=== PATIENT | female | born 1945 | race Two or more races ===

== ENCOUNTER 2019-03-26 10:00 | Inpatient (IN) | payer MEDICARE ==
[~2019-03-26] VITALS: Ht 162.6 cm; Wt 72.1 kg
[2019-03-26] MEDS ORDERED: ACETAMINOPHEN 325 MG TABLET PO PRN (11:30)
[2019-03-26] MEDS ORDERED: BLOOD SUGAR DIAGNOSTIC 1 EACH STRIP IN ONE (11:30)
[2019-03-26] MEDS ORDERED: MAG HYDROX/AL HYDROX/SIMETH 30 ML UDC PO PRN (11:30)
[2019-03-26] MEDS ORDERED: MAGNESIUM HYDROXIDE 30 ML UDC PO PRN (11:30)
[2019-03-26] MEDS ORDERED: TEMAZEPAM 7.5 MG CAPSULE PO PRN (11:30)
[2019-03-26] MEDS ORDERED: LORAZEPAM 0.5 MG TABLET PO PRN (11:30)
[2019-03-26] MEDS ORDERED: HYDR25TA4 PO (12:24)
[2019-03-26] MEDS ORDERED: POTA20TA83 PO (12:24)
[2019-03-26] MEDS ORDERED: LISI40TA4 PO (12:24)
[2019-03-26] MEDS ORDERED: ATOR10TA PO (12:24)
[2019-03-26] MEDS ORDERED: CARV25TA2 PO (12:24)
[2019-03-26] MEDS ORDERED: FLUO20CA40 PO (12:24)
[2019-03-26] MEDS ORDERED: LATA2.5D7 OP (12:27)
[2019-03-26] MEDS ORDERED: DOXA4TAB19 PO (12:27)
[2019-03-26 14:37] VITALS: BP 108/56
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
[2019-03-26 16:00] VITALS: BP 105/58
[2019-03-26] MEDS: ATORVASTATIN 10 MG TABLET PO SCH ×2 (16:43→21:34)
[2019-03-26] MEDS: LISINOPRIL (20MG) 20 MG TABLET PO SCH (16:43)
[2019-03-26] MEDS: BENZTROPINE MESYLATE (1 MG) 1 MG TABLET PO SCH (19:00)
[2019-03-26] MEDS: HALOPERIDOL 5 MG TABLET PO SCH (19:00)
[2019-03-26] MEDS: CARVEDILOL 12.5 MG TABLET PO SCH (21:00)
[2019-03-26 21:09] VITALS: BP 113/51
[2019-03-26] MEDS: LATANOPROST EYE DROP 0.005% 2.5 ML BOTTLE OP SCH (21:35)
--- NOTE | 2019-03-27 06:42 | NUR ---
pt refused blood draw for routine labs. explained benefits. pt still refused.
[2019-03-27] MEDS: HALOPERIDOL 5 MG TABLET PO SCH ×2 (07:00→19:00)
[2019-03-27] MEDS: BENZTROPINE MESYLATE (1 MG) 1 MG TABLET PO SCH ×2 (07:00→19:45)
[2019-03-27 08:00] VITALS: BP 124/70
[2019-03-27] MEDS: HYDROCHLOROTHIAZIDE 25 MG TABLET PO SCH (09:00)
[2019-03-27] MEDS: POTASSIUM CHLORIDE 20 MEQ TAB.PRT.SR PO SCH (09:23)
[2019-03-27] MEDS: DOXAZOSIN MESYLATE (4 MG) 4 MG TABLET PO SCH (09:23)
[2019-03-27] MEDS: CARVEDILOL 12.5 MG TABLET PO SCH ×2 (09:24→21:06)
[2019-03-27] MEDS: LISINOPRIL (20MG) 20 MG TABLET PO SCH (09:25)
--- NOTE | 2019-03-27 15:14 | NUR ---
APS Contact: SW called aps worker Felicita ([phone]) and left a voicemail stating that the SW would like to discuss the pts treatment.
--- NOTE | 2019-03-27 15:14 | NUR ---
County Contact: Norman ([phone]) from [facility] called the SW and stated that he would like to be informed of the pts discharge plan and stated that they can set up aftercare if necessary.
--- NOTE | 2019-03-27 15:16 | NUR ---
Initial Discharge Plan: Pt is currently homeless and has been refusing placement. SW will work with the pt and the MD regarding appropriate discharge planning. SW will form a safe and proper discharge.
[2019-03-27 15:20] LABS: ALBUMIN 3.1 g/dL (3.4-5.0); BILIRUBIN,TOTAL 0.3 mg/dL (0.2-1.0); CALCIUM, SERUM 8.5 mg/dL (8.5-10.1); CREATININE 0.6 mg/dL (0.6-1.3); POTASSIUM 3.9 mmol/L (3.5-5.1); TOTAL PROTEIN, SERUM 6.2 g/dL (6.4-8.2)
[2019-03-27 16:00] VITALS: BP 125/68
[2019-03-27 17:30] LABS: CHOLESTEROL 126 mg/dL (<200); HDL CHOLESTEROL 42 mg/dL (40-60); LDL 65 mg/dL (0-99); TRIGLYCERIDES 158 mg/dL (30-150)
--- NOTE | 2019-03-27 19:47 | NUR ---
GPS/HEALTHCARE BUSINESS ANALYST NOTES: PT. REFUSED HS HALDOL 5MG PO ORDERED. OFFERED 3X. EXPLAINED RISK AND BENEFITS. PT. STILL REFUSED.
[2019-03-27 20:58] VITALS: BP 148/85
[2019-03-27] MEDS: LATANOPROST EYE DROP 0.005% 2.5 ML BOTTLE OP SCH (21:06)
[2019-03-27] MEDS: ATORVASTATIN 10 MG TABLET PO SCH (21:06)
[2019-03-28] MEDS: HALOPERIDOL 5 MG TABLET PO SCH ×2 (07:00→18:08)
[2019-03-28] MEDS: BENZTROPINE MESYLATE (1 MG) 1 MG TABLET PO SCH ×2 (07:25→18:08)
[2019-03-28 08:00] VITALS: BP 141/68
[2019-03-28] MEDS: POTASSIUM CHLORIDE 20 MEQ TAB.PRT.SR PO SCH (08:14)
[2019-03-28] MEDS: LISINOPRIL (20MG) 20 MG TABLET PO SCH (08:14)
[2019-03-28] MEDS: DOXAZOSIN MESYLATE (4 MG) 4 MG TABLET PO SCH (08:14)
[2019-03-28] MEDS: HYDROCHLOROTHIAZIDE 25 MG TABLET PO SCH (08:15)
[2019-03-28] MEDS: CARVEDILOL 12.5 MG TABLET PO SCH ×2 (08:15→21:00)
[2019-03-28 16:00] VITALS: BP 128/69
--- NOTE | 2019-03-28 19:14 | NUR ---
GPS/RN NOTE: A/O X3, COMFORTABLE, RESTING QUIETLY, NO APPARENT DISTRESS NOTED. CALM, ISOLATIVE. FALL RISK PRECAUTION MAINTAINED. CONTINUE TO MONITOR FOR SAFETY AND BEHAVIOR.
[2019-03-28 20:31] VITALS: BP 116/61
--- NOTE | 2019-03-28 21:14 | NUR ---
GPS/RN NOTE: REFUSED HER COREG 12.5 MG TAB PO DUE 2100 TONIGHT, BP 116/61, PULSE 72.
[2019-03-28] MEDS: LATANOPROST EYE DROP 0.005% 2.5 ML BOTTLE OP SCH (21:16)
[2019-03-28] MEDS: ATORVASTATIN 10 MG TABLET PO SCH (21:16)
[2019-03-29] MEDS: BENZTROPINE MESYLATE (1 MG) 1 MG TABLET PO SCH ×2 (06:55→19:00)
[2019-03-29] MEDS: HALOPERIDOL 5 MG TABLET PO SCH ×2 (06:55→19:00)
--- NOTE | 2019-03-29 07:30 | NUR ---
OPENING PT RESTING COMFORTABLY IN BED A/O X3, COMFORTABLE, RESTING QUIETLY, NO APPARENT DISTRESS NOTED. CALM, ISOLATIVE. FALL RISK PRECAUTION MAINTAINED. CONTINUE TO MONITOR FOR SAFETY AND BEHAVIOR.
[2019-03-29 08:00] VITALS: BP 136/73
[2019-03-29] MEDS: HYDROCHLOROTHIAZIDE 25 MG TABLET PO SCH (09:23)
[2019-03-29] MEDS: DOXAZOSIN MESYLATE (4 MG) 4 MG TABLET PO SCH (09:23)
[2019-03-29] MEDS: POTASSIUM CHLORIDE 20 MEQ TAB.PRT.SR PO SCH (09:24)
[2019-03-29] MEDS: LISINOPRIL (20MG) 20 MG TABLET PO SCH (09:24)
[2019-03-29] MEDS: CARVEDILOL 12.5 MG TABLET PO SCH ×2 (09:25→21:40)
--- NOTE | 2019-03-29 14:34 | NUR ---
SISTER CALL TODAY SPOKE ABOUT PT NIECE CALL, MISA ROBIN, TELEPHONE NUMBER:
[2019-03-29 16:00] VITALS: BP 130/61
--- NOTE | 2019-03-29 17:52 | NUR ---
CLOSING PT COOPERATIVE ALL SHIFT KEEP SAFE ALL MEDICATIONS GIVEN WILL GIVE REPORT TO PM SHIFT RN FOR CONTINUITY OF CARE
--- NOTE | 2019-03-29 19:11 | NUR ---
GPS/RN NOTE: REFUSED COGENTIN 1 MG DUE FOR 1900 TONIGHT.
--- NOTE | 2019-03-29 19:13 | NUR ---
GPS/RN NOTE: REFUSED TO TAKE HALDOL 5 MG TAB DUE FOR 1900 TONIGHT.
--- NOTE | 2019-03-29 20:10 | NUR ---
GPS/RN NOTE: QUIET, LYING IN BED ON HER LEFT SIDE, SHOWS NO S/S OF ANY DISTRESS. A/O X3, AMBULATORY/INDEPENDENT WITH ROUTINE ADL'S. A/O X3, NON-COMPLIANT WITH HER COGENTIN, REFUSED 1900 DOSE TONIGHT. WILL CONTINUE TO MONITOR.
[2019-03-29 20:13] VITALS: BP 117/65
[2019-03-29] MEDS: ATORVASTATIN 10 MG TABLET PO SCH (21:40)
[2019-03-29] MEDS: LATANOPROST EYE DROP 0.005% 2.5 ML BOTTLE OP SCH (21:44)
--- NOTE | 2019-03-29 21:45 | NUR ---
GPS/RN NOTE: REFUSED HER XALATAN OPTHALMIC SOLUTION, SHE STATED, " IT IRRITATES MY EYES."
[2019-03-30] MEDS: HALOPERIDOL 5 MG TABLET PO SCH ×2 (06:22→19:00)
[2019-03-30] MEDS: BENZTROPINE MESYLATE (1 MG) 1 MG TABLET PO SCH ×2 (06:23→19:00)
--- NOTE | 2019-03-30 06:23 | NUR ---
GPS/RN NOTE: COGENTIN NOT GIVEN 0700 DOSE TODAY PER MD'S ORDER. PATIENT REFUSED HALDOL AT THIS TIME. MD'S ORDER IS, IF PATIENT IS NOT TAKING HALDOL, COGENTIN MUST BE HELD. NO COGENTIN WAS GIVEN.
--- NOTE | 2019-03-30 06:59 | NUR ---
GPS/RN END OF SHIFT NOTE: SLEPT FOR 8 HOURS LAST NIGHT. NO APPARENT DISTRESS NOTED. REFUSED HALDOL LAST NIGHT, COGENTIN NOT ADMINISTERED PER DOCTOR'S ORDER,DUE TO HER REFUSAL OF HALDOL, DR. SMALL AWARE. WILL CONTINUE TO MONITOR.
[2019-03-30 08:00] VITALS: BP 127/63
[2019-03-30] MEDS: LISINOPRIL (20MG) 20 MG TABLET PO SCH (08:52)
[2019-03-30] MEDS: POTASSIUM CHLORIDE 20 MEQ TAB.PRT.SR PO SCH (08:52)
[2019-03-30] MEDS: HYDROCHLOROTHIAZIDE 25 MG TABLET PO SCH (08:52)
[2019-03-30] MEDS: DOXAZOSIN MESYLATE (4 MG) 4 MG TABLET PO SCH (08:53)
[2019-03-30] MEDS: CARVEDILOL 12.5 MG TABLET PO SCH ×2 (08:54→21:30)
[2019-03-30 16:00] VITALS: BP 112/59
--- NOTE | 2019-03-30 19:05 | NUR ---
gps/rn pt refused paul and genevieve po scheduled for 190
[2019-03-30 20:23] VITALS: BP 124/71
[2019-03-30] MEDS: ATORVASTATIN 10 MG TABLET PO SCH (21:29)
[2019-03-30] MEDS: LATANOPROST EYE DROP 0.005% 2.5 ML BOTTLE OP SCH (21:32)
[2019-03-31] MEDS: BENZTROPINE MESYLATE (1 MG) 1 MG TABLET PO SCH ×2 (07:35→19:35)
[2019-03-31] MEDS: HALOPERIDOL 5 MG TABLET PO SCH ×2 (07:35→19:35)
--- NOTE | 2019-03-31 07:41 | NUR ---
RN NOTES: PT. TOOK MEDS FOR 0700 AM , HALODOL 5 MG , COGENTIN 1 MG, ENDORSE TO CHARGE NURSE, WILL CONTINUITY WITH CARE
[2019-03-31 08:00] VITALS: BP 124/69
[2019-03-31] MEDS: POTASSIUM CHLORIDE 20 MEQ TAB.PRT.SR PO SCH (09:41)
[2019-03-31] MEDS: CARVEDILOL 12.5 MG TABLET PO SCH ×2 (09:41→21:19)
[2019-03-31] MEDS: HYDROCHLOROTHIAZIDE 25 MG TABLET PO SCH (09:42)
[2019-03-31] MEDS: LISINOPRIL (20MG) 20 MG TABLET PO SCH (09:42)
[2019-03-31] MEDS: DOXAZOSIN MESYLATE (4 MG) 4 MG TABLET PO SCH (09:42)
[2019-03-31 16:00] VITALS: BP 101/60
[2019-03-31 20:08] VITALS: BP 108/65
[2019-03-31 20:09] VITALS: BP 112/61
[2019-03-31] MEDS: ATORVASTATIN 10 MG TABLET PO SCH (21:20)
[2019-03-31] MEDS: LATANOPROST EYE DROP 0.005% 2.5 ML BOTTLE OP SCH (21:20)
[2019-04-01] MEDS: BENZTROPINE MESYLATE (1 MG) 1 MG TABLET PO SCH ×2 (07:02→18:43)
[2019-04-01] MEDS: HALOPERIDOL 5 MG TABLET PO SCH ×2 (07:02→18:43)
[2019-04-01 08:00] VITALS: BP 138/78
[2019-04-01] MEDS: HYDROCHLOROTHIAZIDE 25 MG TABLET PO SCH (08:52)
[2019-04-01] MEDS: POTASSIUM CHLORIDE 20 MEQ TAB.PRT.SR PO SCH (08:53)
[2019-04-01] MEDS: DOXAZOSIN MESYLATE (4 MG) 4 MG TABLET PO SCH (08:53)
[2019-04-01] MEDS: CARVEDILOL 12.5 MG TABLET PO SCH ×2 (08:53→21:06)
[2019-04-01] MEDS: LISINOPRIL (20MG) 20 MG TABLET PO SCH (08:53)
--- NOTE | 2019-04-01 11:37 | NUR ---
APS Contact: SW called aps worker Felicita ([phone]) as she had left a voicemail for the SW over the weekend and the SW left a voicemail stating that she would like to discuss the pts treatment.
--- NOTE | 2019-04-01 11:55 | NUR ---
Family Contact: SW called the pts sister, Temi ([phone]), and left a message on her voicemail stating that the SW would like to discuss the pts discharge plan.
--- NOTE | 2019-04-01 12:07 | NUR ---
Family Contact: GEOVANY called the pts Isamar strauss ([phone]), and informed her that the plan is to discharge the pt to a nursing facility in [place] because Adult Protective Services would like to consider conserving the pt but she would have to be in that [facility].
--- NOTE | 2019-04-01 15:20 | NUR ---
GROUP NOTE: SW assessed pts ability to participate in group therapy nn this present day discussing "discharge planning." Pt refused yelling, "if you cant help me leave today then get out of my room I don't need to talk to you." SW attempted to engage pt in conversation but pt has lacks insight and has has impaired judgement.
[2019-04-01 16:00] VITALS: BP 114/67
[2019-04-01 20:27] VITALS: BP 120/66
[2019-04-01 20:38] VITALS: BP 101/62
[2019-04-01] MEDS: LATANOPROST EYE DROP 0.005% 2.5 ML BOTTLE OP SCH (21:04)
[2019-04-01] MEDS: ATORVASTATIN 10 MG TABLET PO SCH (21:06)
[2019-04-02 08:00] VITALS: BP 140/71
[2019-04-02] MEDS: BENZTROPINE MESYLATE (1 MG) 1 MG TABLET PO SCH ×3 (08:44→16:40)
[2019-04-02] MEDS: HALOPERIDOL 5 MG TABLET PO SCH ×3 (08:44→16:40)
[2019-04-02] MEDS: DOXAZOSIN MESYLATE (4 MG) 4 MG TABLET PO SCH (08:46)
[2019-04-02] MEDS: HYDROCHLOROTHIAZIDE 25 MG TABLET PO SCH (08:47)
[2019-04-02] MEDS: CARVEDILOL 12.5 MG TABLET PO SCH ×2 (08:47→21:31)
[2019-04-02] MEDS: LISINOPRIL (20MG) 20 MG TABLET PO SCH (08:47)
[2019-04-02] MEDS: POTASSIUM CHLORIDE 20 MEQ TAB.PRT.SR PO SCH (08:47)
--- NOTE | 2019-04-02 09:02 | NUR ---
APS Contact: GEOVANY called APS worker Felicita ([phone]), and informed her that she received her voicemail and that she will be calling the pts niece that she stated would be involved in the treatment planning.
--- NOTE | 2019-04-02 10:06 | NUR ---
Family Contact: SW contacted the pts niece, Dominga ([phone]), and left a voicemail stating that the SW would like to discuss the pts treatment plan.
--- NOTE | 2019-04-02 10:08 | NUR ---
PC Hearing Notification: GEOVANY called the pts Isamar strauss ([phone]), and informed her that the pt will be having a Probable Cause hearing today and that she may call back with any questions.
--- NOTE | 2019-04-02 13:02 | NUR ---
GPS/RN NOTES MEDICATION COGENTIN AND HALDOL WAS NOT GIVEN AT NOON DUE TO PATIENT REFUSING. EXPLAINED RISK AND BENEFITS X3. STILL REFUSED X3. PATIENT CONTINUES TO REMAIN IN STABLE. WILL CONTINUE TO MONITOR CLOSELY.
--- NOTE | 2019-04-02 14:30 | NUR ---
GPS/RN NOTES RECEIVED A PHONE CALL FROM DR. SMALL AND REPORTED THAT PATIENT TOOK HER MORNING MEDS BUT NOT HER NOON MEDICATION. PATIENT CONTINUES TO REMAIN IN STABLE CONDITION. WILL CONTINUE TO MONITOR CLOSELY.
--- NOTE | 2019-04-02 14:35 | NUR ---
Family Contact: Pts carlos a, Dominga ([phone]) called the SW and stated that she wanted the pt to be transferred to a hospital in the [facility] so that the pt can become LPS conserved. SW stated that she would attempt to transfer and informed her that as a backup the pt may be [facility].
--- NOTE | 2019-04-02 15:39 | NUR ---
SNF Referral: GEOVANY faxed a referral to [facility] (with attention to Sally) to the fax number: [phone].
--- NOTE | 2019-04-02 15:53 | NUR ---
Family Contact: GEOVANY contacted the pts niece, Dominga ([phone]), and the pts niece expressed her concern with the pt being at a skilled nrusing facility where the potential Riese will not apply and the pt can refuse her medications. She stated that the pt needs to be conserved and therefore the best option would be to transfer the pt to [facility] as was suggested by APS GEOVANY Mims. GEOVANY stated that she will discuss this plan with her patrol supervisor the following day and then provide her with a call back.
[2019-04-02 16:00] VITALS: BP 118/61
--- NOTE | 2019-04-02 16:11 | NUR ---
Group Note: SW encouraged pt to attend group therapy on 04/02/19 at 12pm discussing discharge planning. Pt is inappropriate for group therapy at this time and refused to participate. Pt has not been taking her medications and has been verbally aggressive on the unit with the pts and the staff members. Pt screamed at the SW that she "does not have a problem and I demand that you let me go back home now!" GEOVANY informed the pt that she will return to the [facility] but it may be in a SNF and the pt stated that she will refuse to go because she would "rather be on the streets."
--- NOTE | 2019-04-02 18:22 | NUR ---
GPS/RN CLOSING NOTES PATIENT CONTINUES TO REMAIN IN STABLE CONDITION THROUGHOUT THE SHIFT. PROVIDED COMFORT AND SAFETY AT ALL TIMES. PATIENT CONTINUES TO REFUSED MEDICATION AT THIS TIME. DR. SMALL WAS AWARE. WITH NO SUICIDAL IDEATION AT THIS TIME. ALL NEEDS ANTICIPATED. CALL LIGHT WITHIN REACHED. BED LOCKED AND IN LOWEST POSITION. WILL CONTINUE TO MONITOR CLOSELY. ENDORSED TO PM NURSE FOR YAMILETH.
[2019-04-02 19:55] VITALS: BP 111/61
[2019-04-02] MEDS: ATORVASTATIN 10 MG TABLET PO SCH (21:30)
[2019-04-02] MEDS: LATANOPROST EYE DROP 0.005% 2.5 ML BOTTLE OP SCH (21:31)
[2019-04-03 08:00] VITALS: BP 121/68
[2019-04-03 08:18] LABS: BASOPHILS % (AUTO) 0.5 % (0.0-2.0); EOSINOPHILS % (AUTO) 1.6 % (0.0-6.0); HEMATOCRIT 36 % (33-45); HEMOGLOBIN 12.1 g/dL (11.5-14.8); LYMPHOCYTES # (AUTO) 1.4 /CMM (0.8-4.8); LYMPHOCYTES % (AUTO) 26.3 % (20.0-44.0); MEAN CORPUSCULAR HGB CONC 34 g/dl (31.0-36.0); MEAN CORPUSCULAR VOLUME 92 fL (82-100); MONOCYTES # (AUTO) 0.5 /CMM (0.1-1.30); MONOCYTES % (AUTO) 9.2 % (2.0-12.0); NEUTROPHILS # (AUTO) 3.2 /CMM (1.8-8.9); NEUTROPHILS % (AUTO) 62.4 % (43.0-81.0); PLATELET COUNT (AUTO) 222 /CMM (150-450); RED BLOOD CELL COUNT(AUTO) 3.92 MIL/uL (4.0-5.2); WHITE BLOOD COUNT (AUTO) 5.2 K/uL (4.3-11.0)
[2019-04-03] MEDS: DOXAZOSIN MESYLATE (4 MG) 4 MG TABLET PO SCH (08:26)
[2019-04-03] MEDS: POTASSIUM CHLORIDE 20 MEQ TAB.PRT.SR PO SCH (08:26)
[2019-04-03] MEDS: HALOPERIDOL 5 MG TABLET PO SCH ×4 (08:26→16:59)
[2019-04-03] MEDS: HYDROCHLOROTHIAZIDE 25 MG TABLET PO SCH (08:26)
[2019-04-03] MEDS: BENZTROPINE MESYLATE (1 MG) 1 MG TABLET PO SCH ×4 (08:27→16:58)
[2019-04-03] MEDS: CARVEDILOL 12.5 MG TABLET PO SCH ×2 (08:27→21:00)
[2019-04-03] MEDS: LISINOPRIL (20MG) 20 MG TABLET PO SCH (08:28)
[2019-04-03 08:39] LABS: CALCIUM, SERUM 8.7 mg/dL (8.5-10.1); CREATININE 0.6 mg/dL (0.6-1.3); PHOSPHORUS 3.8 mg/dL (2.5-4.9); POTASSIUM 4.2 mmol/L (3.5-5.1)
--- NOTE | 2019-04-03 09:56 | NUR ---
Coordination of Care: GEOVANY called [facility] ([phone]) and spoke to Ghada in the intake department who stated that their age range falls between 18-64 years for their patients and this pt is 73 which is outside of their accepted range. GEOVANY stated that she will try [facility]. Addendum: 04/05/19 at 0949 by HIEU ARMENTA [facility]
--- NOTE | 2019-04-03 10:06 | NUR ---
Coordination of Care: SW called [facility] ([phone]) and spoke to Teetee who stated that there is no female bed available at this time but asked the SW to fax records to: [phone]. GEOVANY stated that she will do so and then will follow up.
--- NOTE | 2019-04-03 10:21 | NUR ---
Coordination of Care: GEOVANY faxed records to [facility] with attention to Teetee to the fax number: [phone].
[2019-04-03] MEDS ORDERED: BENZTROPINE MESYLATE (2MG/2ML) 2 MG/2 ML AMPUL IM PRN (15:30)
[2019-04-03] MEDS ORDERED: HALOPERIDOL DECANOATE IM 100 MG/ML AMPUL IM ONE (15:30)
--- NOTE | 2019-04-03 15:30 | NUR ---
GROUP NOTE: SW assessed pts ability to participate in group therapy nn this present day discussing "reality testing." Pt refused and stated that she does not have to participate in anything as she has already filed for a WRIT HEARING and is waiting for it to be scheduled so she can leave.
[2019-04-03 16:00] VITALS: BP 120/64
[2019-04-03] MEDS: HALOPERIDOL LACTATE INJ 5 MG/ML VIAL IM SCH (17:00)
--- NOTE | 2019-04-03 17:47 | NUR ---
RN NOTE- PT RIESE HEARING TODAY. PT TOOK PO HALDOL AND COGENTIN. IM HALDOL AND COGENTIN NOT INDICATED AT THIS TIME.
[2019-04-03 20:15] VITALS: BP 109/60
[2019-04-03] MEDS: LATANOPROST EYE DROP 0.005% 2.5 ML BOTTLE OP SCH (21:22)
[2019-04-03] MEDS: ATORVASTATIN 10 MG TABLET PO SCH (21:22)
[2019-04-04 08:00] VITALS: BP 116/66
[2019-04-04] MEDS: FLUOXETINE HCL 20 MG CAPSULE PO SCH (08:40)
[2019-04-04] MEDS: HALOPERIDOL 5 MG TABLET PO SCH ×3 (08:40→18:05)
[2019-04-04] MEDS: DOXAZOSIN MESYLATE (4 MG) 4 MG TABLET PO SCH (08:40)
[2019-04-04] MEDS: BENZTROPINE MESYLATE (1 MG) 1 MG TABLET PO SCH ×3 (08:40→18:05)
[2019-04-04] MEDS: POTASSIUM CHLORIDE 20 MEQ TAB.PRT.SR PO SCH (08:40)
[2019-04-04] MEDS: HYDROCHLOROTHIAZIDE 25 MG TABLET PO SCH (08:41)
[2019-04-04] MEDS: CARVEDILOL 12.5 MG TABLET PO SCH ×2 (08:41→21:06)
[2019-04-04] MEDS: LISINOPRIL (20MG) 20 MG TABLET PO SCH (08:42)
[2019-04-04] MEDS: HALOPERIDOL LACTATE INJ 5 MG/ML VIAL IM SCH ×3 (09:00→17:00)
--- NOTE | 2019-04-04 09:33 | NUR ---
APS Contact: APS worker Felicita ([phone]) called the SW and she was informed that the SW had attempted to transfer the pt to [facility] but was unsuccessful. SW stated that the pt is being considered admission to [facility] and that the pt is being discharged the following day. APS SW stated that she would speak to the family regarding the next steps of action.
--- NOTE | 2019-04-04 09:39 | NUR ---
Family Contact: SW contacted the pts niece, Dominga ([phone]), and left a voicemail stating that the SW would like to discuss the case with her.
--- NOTE | 2019-04-04 09:42 | NUR ---
GPS/RN pt took all am meds
--- NOTE | 2019-04-04 10:17 | NUR ---
DR. SMALL MADE AWARE THAT THE SCHEDULE FOR THE WRIT OF LAINE [facility]PUS TOMORROW (04/05/2019) AT 8;30 AM.
--- NOTE | 2019-04-04 10:39 | NUR ---
SNF Contact: GEOVANY faxed updated notes to [facility] (with attention to Sally) to the fax number: [phone].
--- NOTE | 2019-04-04 11:45 | NUR ---
[facility] Contact: Norman ([phone]) from [facility] called the SW and the SW informed him that the pt is being discharged tomorrow but [facility] is still not confirmed and the SW tried the other two [facility] hospitals in that area. He suggested that the SW try the [facility] ([phone]) program. SW stated that she would provide an update by the end of the day.
--- NOTE | 2019-04-04 11:51 | NUR ---
BREAD ROOM HAND Contact: GEOVANY called the [facility] ([phone]) program and spoke to Jody who stated that there is a waitlist currently and stated that the SW can still fax a referral to: [phone].
--- NOTE | 2019-04-04 11:56 | NUR ---
PUBLICIST Referral: GEOVANY faxed a referral to the [facility] ([phone]) to the fax number: [phone].
--- NOTE | 2019-04-04 11:57 | NUR ---
[facility] Contact: Fanny ([phone]) assisting Harrison Sunday called the SW and stated that she wanted information regarding his discharge and if the pt will have everything that he needs. She stated that he has 45 hours Supportive Living Services a month but stated that he would require more. She requested that the SW follow up with her at the time of discharge with the home health information and the caregiving information. Addendum: 04/04/19 at 1203 by HIEU ARMENTA Baby Nurse Harrison Brand [phone]
--- NOTE | 2019-04-04 13:29 | NUR ---
SNF Contact: Sally ([phone]) from [facility] contacted the SW and stated that the pt will be accepted to their facility.
[2019-04-04] MEDS ORDERED: HALOPERIDOL DECANOATE IM 100 MG/ML AMPUL IM ONE (15:00)
--- NOTE | 2019-04-04 15:22 | NUR ---
Family Contact: Pts niece, Dominga ([phone]), called the SW back and the SW informed her that the pt is going to be discharged tomorrow to [facility]. She was informed that the facility is aware of transferring to a [facility] so that the pt can be conserved.
--- NOTE | 2019-04-04 15:56 | NUR ---
[facility] Contact: GEOVANY called Norman ([phone]) from [facility] and left him a message on his voicemail stating that the pt will be discharged to [facility] because the [facility] program does not have any beds available at this time.
[2019-04-04 16:00] VITALS: BP 100/51
--- NOTE | 2019-04-04 16:03 | NUR ---
Group Note: SW encouraged pt to attend group therapy on 04/04/19 at 2pm discussing social supports. Pt is inappropriate for group therapy at this time and refused to participate. Pt has not been taking her medications until today due to being riesed and pt has been verbally aggressive on the unit with the pts and the staff members. Pt told the SW, "Leave me alone, I am being discharged tomorrow."
[2019-04-04 20:02] VITALS: BP 131/69
[2019-04-04] MEDS: ATORVASTATIN 10 MG TABLET PO SCH (21:06)
[2019-04-04] MEDS: LATANOPROST EYE DROP 0.005% 2.5 ML BOTTLE OP SCH (21:06)
[2019-04-05 08:00] VITALS: BP 122/74
--- NOTE | 2019-04-05 08:48 | NUR ---
GPS/RN D/C ORDERS FROM DR SMALL RECEIVED. COURT CALLED AND NOTIFIED OF PENDING DISCHARGE( SPOKE WITH LUIS AT 0820)
[2019-04-05] MEDS: HALOPERIDOL LACTATE INJ 5 MG/ML VIAL IM SCH (09:00)
[2019-04-05] MEDS: DOXAZOSIN MESYLATE (4 MG) 4 MG TABLET PO SCH (09:06)
[2019-04-05] MEDS: LISINOPRIL (20MG) 20 MG TABLET PO SCH (09:06)
[2019-04-05] MEDS: CARVEDILOL 12.5 MG TABLET PO SCH (09:07)
[2019-04-05] MEDS: BENZTROPINE MESYLATE (1 MG) 1 MG TABLET PO SCH (09:08)
[2019-04-05] MEDS: FLUOXETINE HCL 20 MG CAPSULE PO SCH (09:08)
[2019-04-05] MEDS: POTASSIUM CHLORIDE 20 MEQ TAB.PRT.SR PO SCH (09:09)
[2019-04-05 09:22] VITALS: BP 122/74
[2019-04-05] MEDS: HYDROCHLOROTHIAZIDE 25 MG TABLET PO SCH (09:22)
--- NOTE | 2019-04-05 09:27 | NUR ---
RN NOTE - PT TOOK PO MEDS THIS AM, NO IM NEEDED
[2019-04-05] MEDS: HALOPERIDOL 5 MG TABLET PO SCH (09:29)
--- NOTE | 2019-04-05 09:49 | NUR ---
County Contact: Ajay ([phone]), Airport Operations Supervisor Office, called the SW and asked about the pts discharge plan and inquired about the attempts that the SW had made to transfer the pt to a hospital in [facility].
--- NOTE | 2019-04-05 12:15 | NUR ---
RN NOTE- PT DC AT THIS TIME TO [facility]. SHE LEFT VIA FACILITY TRANSPORT ACCOMPANIED BY STAFF. VS STABLE, ALERT ORIENTED TO PERSON PLACE. DENIES SI HI AH VH AT TIME OF DC. MED COMPLIANT W RX. ID BAND REMOVED, VALUABLES RETURNED AND PT LEFT UNIT CALM AND COOPERATIVE.
--- NOTE | 2019-04-05 14:39 | NUR ---
Discharge Note: Pt was discharged to [facility] ([facility]) located at [address] [place] [id number]; ([phone]). Pt will be picked up by the facility around 11AM. Dominga Flores ([phone]), was informed of this discharge. Upon discharge, the pt appeared to be in a euthymic mood and presented with a calm affect. Pt denied both suicidal and homicidal ideation as well as auditory and visual hallucinations. Pt will be under the care of her psychiatrist, Dr. Short, located at [address] [place] [address]; and her kitchen runner, Dr. Salgado, located at [address] [place] [address] [address], [place] [address]; . Addendum: 04/05/19 at 1441 by HIEU ARMENTA Pt was provided with homeless resources at the time of discharge which included homeless shelters, food [place], places to shower, health clinics and mental health services.
--- NOTE | 2019-04-05 14:42 | NUR ---
County Contact: GEOVANY faxed a discharge clinical to [facility] with attention to Tim to the fax number: [phone].
== END 2019-04-05 12:15 | DRG 885 ==
LOC: GPS 10:00
PROVIDERS: ADMIT Psychiatry & Neurology Psychiatry; ATTEND Internal Medicine
DX: F25.9 Schizoaffective disorder, unspecified (principal); E44.1 Mild protein-calorie malnutrition; F29 Unspecified psychosis not due to a substance or known physiological condition; F41.9 Anxiety disorder, unspecified; E78.5 Hyperlipidemia, unspecified; I10 Essential (primary) hypertension; Z59.0 Homelessness; Z68.27 Body mass index [BMI] 27.0-27.9, adult
CPT/HCPCS: 36415; 80048-TC; 80053-TC; 80061-TC; 82962-TC; 83735-TC; 84100-TC; 85025-TC; 87081-TC; J1631

== ENCOUNTER 2019-09-25 17:18 | Inpatient (IN) | payer MEDICARE ==
[~2019-09-25] VITALS: Ht 162.6 cm; Wt 81.2 kg
[~2019-09-25 17:18] MED LIST: ATOR10TA PO; CARV25TA2 PO; DOXA4TAB19 PO; FLUO20CA42 PO; HYDR25TA4 PO; LATA2.5D7 OP; LISI40TA4 PO; POTA20TA83 PO
[2019-09-25] MEDS ORDERED: AMIN30LI2 PO (19:08)
[2019-09-25] MEDS ORDERED: ACET-2605 PO (19:08)
[2019-09-25] MEDS ORDERED: ACET-868 PO (19:08)
[2019-09-25] MEDS ORDERED: ATOR40TA PO (19:08)
[2019-09-25] MEDS ORDERED: BIMA2.5D5 EACHEYE (19:08)
[2019-09-25] MEDS ORDERED: AVENOVA EACHEYE (19:12)
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
[2019-09-25 20:01] VITALS: BP 161/77
[2019-09-25] MEDS ORDERED: ACETAMINOPHEN 325 MG TABLET PO PRN ×2 (20:30→22:00)
[2019-09-25] MEDS ORDERED: TEMAZEPAM 7.5 MG CAPSULE PO PRN (20:30)
[2019-09-25] MEDS ORDERED: MAG HYDROX/AL HYDROX/SIMETH 30 ML UDC PO PRN (20:30)
[2019-09-25] MEDS ORDERED: MAGNESIUM HYDROXIDE 30 ML UDC PO PRN (20:30)
[2019-09-25] MEDS ORDERED: LORAZEPAM 1 MG TABLET PO PRN (20:30)
[2019-09-25] MEDS: BLOOD SUGAR DIAGNOSTIC 1 EACH STRIP IN ONE ×2 (21:43→21:45)
[2019-09-25] MEDS: BIMATOPROST 2.5 ML DROPS OP SCH (22:00)
[2019-09-25] MEDS: ATORVASTATIN 40 MG TABLET PO SCH (22:13)
--- NOTE | 2019-09-25 22:16 | NUR ---
GPS RN NOTE: MEDICATION REFUSAL PT. REFUSED LUMIGAN EYE DROPS. EXPLAINED RISKS AND BENEFITS. OFFERED 3X AND PT. STILL REFUSED. WILL CONTINUE TO MONITOR FOR SAFETY AND BEHAVIOR
[2019-09-26] MEDS ORDERED: ACETAMINOPHEN ES 500 MG TABLET PO PRN (07:00)
[2019-09-26 08:00] VITALS: BP 144/80
[2019-09-26] MEDS: PROSOURCE / PROSTAT (PYXIS) 30 ML UDC PO SCH (09:00)
[2019-09-26] MEDS: HYDROCHLOROTHIAZIDE 25 MG TABLET PO SCH (09:11)
[2019-09-26] MEDS: CARVEDILOL 12.5 MG TABLET PO SCH ×2 (09:11→16:32)
[2019-09-26] MEDS: POTASSIUM CHLORIDE 20 MEQ TAB.PRT.SR PO SCH (09:11)
[2019-09-26] MEDS: DOXAZOSIN MESYLATE (4 MG) 4 MG TABLET PO SCH (09:11)
[2019-09-26] MEDS: LISINOPRIL (20MG) 20 MG TABLET PO SCH (09:12)
--- NOTE | 2019-09-26 13:19 | NUR ---
GPS/RN PT ENCOURAGED TO COLLECT THE UA SAMPLE. SPECIMEN CONTAINER AT BEDSIDE
--- NOTE | 2019-09-26 13:33 | NUR ---
Initial Discharge Plan: Pt currently resides at [facility] located at [address] [place] [address]; ([phone]). Per pt, she cannot determine where she would like to be discharged. GEOVANY will work with the pt, the MD and the public guardian regarding pts discharge planning. SW will form a safe and proper discharge.
--- NOTE | 2019-09-26 13:33 | NUR ---
Public Guardian Office Contact: GEOVANY called the [facility] Public Guardian Office ([phone]) and asked the dental front office assistant to fax over the Detain and Treat. GEOVANY also asked for the contact information for the [facility] public guardian.
--- NOTE | 2019-09-26 13:37 | NUR ---
Public Guardian Contact: GEOVANY called Jasmin Huitron ([phone]), pts Public Guardian, and was unable to leave a voicemail as the mailbox is full.
--- NOTE | 2019-09-26 13:38 | NUR ---
[facility] Contact: Ghada ([phone]) from [facility] called the SW and asked for a fax of the pts information for the Public Guardian office. SW stated that she will send it the following day when there is more information.
--- NOTE | 2019-09-26 13:39 | NUR ---
SNF Contact: GEOVANY contacted Sally ([phone]), transportation coordinator for [facility], and confirmed that the pt can return to the facility. She stated that if the pt stays for longer than 3-5 days, then a COVID test will be necessary. GEOVANY stated that if a pt is readmitted that should not be the case but she stated that is their policy.
--- NOTE | 2019-09-26 14:17 | NUR ---
Public Guardian Contact: Jasmin M ([phone]), pts Public Guardian, called the SW and stated that she was informed by the [facility] that she will not be able to return. SW stated that she will follow up with the SNF. SW then asked for the pts Detain and Treat to be faxed over.
--- NOTE | 2019-09-26 14:49 | NUR ---
Individual Counseling: This SW met with the pt. at beside to discuss positive coping mechanisms. However, pt. remained asleep and was not easily rousable. Pt. will be invited to attend future therapeutic milieu.
[2019-09-26 16:00] VITALS: BP 138/77
[2019-09-26] MEDS ORDERED: POLYVINYL ALCOHOL 15 ML BOTTLE OP PRN (16:00)
[2019-09-26 20:37] VITALS: BP 146/74
[2019-09-26] MEDS ORDERED: HALOPERIDOL 5 MG TABLET PO SCH (21:30)
[2019-09-26] MEDS: BIMATOPROST 2.5 ML DROPS OP SCH (22:00)
[2019-09-26] MEDS: ATORVASTATIN 40 MG TABLET PO SCH (22:25)
[2019-09-26] MEDS: HALOPERIDOL 5 MG TABLET PO SCH (22:29)
[2019-09-26] MEDS: BENZTROPINE MESYLATE (1 MG) 1 MG TABLET PO SCH (22:31)
[2019-09-27 08:11] VITALS: BP 150/73
[2019-09-27] MEDS: HALOPERIDOL 5 MG TABLET PO SCH ×3 (08:52→16:35)
[2019-09-27] MEDS: DOXAZOSIN MESYLATE (4 MG) 4 MG TABLET PO SCH (08:52)
[2019-09-27] MEDS: POTASSIUM CHLORIDE 20 MEQ TAB.PRT.SR PO SCH (08:52)
[2019-09-27] MEDS: HYDROCHLOROTHIAZIDE 25 MG TABLET PO SCH (08:52)
[2019-09-27] MEDS: BENZTROPINE MESYLATE (1 MG) 1 MG TABLET PO SCH ×3 (08:52→16:35)
[2019-09-27] MEDS: PROSOURCE / PROSTAT (PYXIS) 30 ML UDC PO SCH (08:53)
[2019-09-27] MEDS: CARVEDILOL 12.5 MG TABLET PO SCH ×2 (08:53→16:35)
[2019-09-27] MEDS: LISINOPRIL (20MG) 20 MG TABLET PO SCH (08:53)
--- NOTE | 2019-09-27 10:52 | NUR ---
[facility] Contact: faxed notes to [facility] with attn to Ghada to the fax number: [phone].
--- NOTE | 2019-09-27 12:30 | NUR ---
Patient refused take meds and urine collect for Lab.
--- NOTE | 2019-09-27 13:09 | NUR ---
[facility] Contact: Danya ([phone]) from [facility] called the SW to stated that the pt was accepted under Dr. Perez to Rm 25B.
--- NOTE | 2019-09-27 13:51 | NUR ---
[facility] Contact: Ghada ([phone]) from [facility] called the SW and stated that [facility] ([phone]) would be willing to pick the pt up but they need the sending hospital to arrange the ride.
--- NOTE | 2019-09-27 14:06 | NUR ---
Public Guardian Contact: GEOVANY called Jasmin Huitron ([phone]), pts Public Guardian, and left a voicemail informing her that the pt is being discharged to [facility].
--- NOTE | 2019-09-27 14:12 | NUR ---
[facility] Contact: GEOVANY called [facility] ([phone]) and was told that they do not have any rides available for today.
--- NOTE | 2019-09-27 14:14 | NUR ---
[facility] Contact: GEOVANY called Ghada ([phone]) from [facility] and informed her that the SW will arrange the ride but informed her that Medicare only pays for 23 miles and that this hospital does not want to be billed for the rest of the ride. GEOVANY then informed her that [facility] does not have any rides for the rest of the day.
--- NOTE | 2019-09-27 14:25 | NUR ---
[facility] Contact: GEOVANY spoke to Rachid ([phone]) from [facility] and arranged the transportation for the transfer to [facility]. GEOVANY stated that the pt will remain on her gravely disabled hold and Rachid stated that Medicare will cover the costs of the transport.
--- NOTE | 2019-09-27 14:27 | NUR ---
Public Guardian Contact: Jasmin Huitron ([phone]), pts Public Guardian, called the SW and stated that she would like the discharge paperwork to be faxed to: [phone].
--- NOTE | 2019-09-27 14:39 | NUR ---
Individual Counseling: This SW met with the pt. at beside to facilitate 1on1 counseling. However, pt. was sleeping and was not rousable by verbal cues. Pt. will be invited to attend future therapeutic milieu.
--- NOTE | 2019-09-27 14:45 | NUR ---
Patient transfer to [facility], given report Tayler/MAURILIO.
--- NOTE | 2019-09-27 14:48 | NUR ---
[facility] Contact: GEOVANY faxed notes and the pts hold to [facility] with attn to Ghada to the fax number: [phone].
[2019-09-27 15:44] VITALS: BP 139/69
--- NOTE | 2019-09-27 16:28 | NUR ---
Discharge Note: Pt was discharged to [facility] located at [address] [place] [address]; . This was a hospital to hospital transfer. Pt was transported via [facility] Trip #[id number] at 5:15pm. Pt was placed to 25B. Pt remained on her 5150 hold. Pt will be followed by Dr. Perez located at [address] [place] [address]; . Pts probate conservator, Jasmin ([phone]), was notified.
--- NOTE | 2019-09-27 19:00 | NUR ---
Patient transfer to [facility], ambulance delayed pic up patient informed ultrasound manager.
--- NOTE | 2019-09-27 19:25 | NUR ---
GPS RN D/C NOTES: AMBULANCE ARRIVE TO ROAD ROLLER OPERATOR PT TO BE DISCHARGED TO [facility] LOCATED [place] [address] [place] [address] TELEPHONE NUMBER . PT WILL BE PLACED TO RM 25B. PT IS CALM COOPERATIVE AND AWARE OF D/C. BELONGINGS GIVEN BACK TO PT. NO S/S OF RESP DISTRESS. BREATHING EVEN AND UNLABORED. NO S/S OF PAIN OR SOB.
== END 2019-09-27 19:29 | DRG 885 ==
LOC: GPS 18:45
PROVIDERS: ADMIT Psychiatry & Neurology Psychiatry; ATTEND Family Medicine
DX: F25.9 Schizoaffective disorder, unspecified (principal); F32.9 Major depressive disorder, single episode, unspecified; E78.5 Hyperlipidemia, unspecified; H40.9 Unspecified glaucoma; I10 Essential (primary) hypertension; Z73.6 Limitation of activities due to disability; F41.9 Anxiety disorder, unspecified
CPT/HCPCS: 97116-TC; 97530-TC